=== PATIENT | female | born 1990 | race Caucasian/White ===

== ENCOUNTER 2019-05-28 06:53 | Inpatient (IN) ==
[2019-05-28] MEDS ORDERED: OXYTOCIN 30 UNITS/500 ML BAG IV PRN ×3 (07:16→18:42)
--- NOTE | 2019-05-28 07:25 | History & Physical Report ---
Date of Service May 28, 2019 Assessment & Plan (1) Uterine contractions at greater than 20 weeks of gestation: 29 yo at 40.4 wks with ctxs, cervical change VSS Afebrile, FHR reassuring, GBS negative Plan to admit, monitor Had plan now and likes to ambulate Discussed IVF/ Pitocin and AROM use and she agrees History of Present Illness Chief Complaint: Contractions Primary Care Provider: Florian Kim MD Patient is a 29 yo at 40.4 wks who woke up with ctxs at 0330 am Got closer and more painful No LOF/VB +FM Her has been uncomplicated GBS negative Her cervix was 1/ 30%/ -3, now changed to good 3/ 60%/ -3 She has regular ctxs Being admitted for labor h/o Celiac disease h/o anxiety / depression: on Welbutryn 300 mg daily Allergies Allergy/AdvReac Type Severity Reaction Status Date / Time gluten Allergy Unknown Unknown Verified 03/26/12 21:38 shellfish derived Allergy Unknown Swelling Verified 03/26/12 21:38 Home Medications Home Medications Medication Instructions Recorded Confirmed Type AMPHETAMINE-DEXTROAMPHETAMINE 10MG 10 mg PO BID PRN #0 tab 08/04/13 History (ADDERALL 10MG) Etonogestrel/Ethinyl Estradiol 1 dose VAGRING MONTHLY #0 dose 09/05/15 History (Nuvaring) Fluticasone Propionate (Nasal) 2 spry LANA DAILY PRN #0 09/05/15 History (Flonase Allergy Relief) OMEPRAZOLE (PRILOSEC) 20 mg PO BID PRN #0 cap 09/05/15 History Patient History Medical History Anxiety [employer] History No h/o STD's Review of Systems All systems reviewed & are unremarkable except as noted in HPI & below Physical Exam Constitutional: WD/WN, vitals as above well developed, + acute distress (with contractions only, smilin in between) and + thin Results & Data Vital Signs (Past 12 Hours) Vital Signs Pulse BP 05/28/19 07:17 73 132/73 Monitoring External Monitor 130's categ I Tocodynamometer Contractions q 3-4 min
[2019-05-28 08:04] LABS: Hematocrit (blood only) 35.1 % (37-47); Mean Corpuscular Volume 88.6 fL (80-100); Mean Platelet Volume 10.9 fL (7.4-10.4); Platelet Count 142 K/uL (130-400); RDW Coefficient of Variation 12.8 % (11.5-14.5); RDW Standard Deviation 41.6 fL (36.4-46.3); Red Blood Count 3.96 M/uL (4.2-5.4)
[2019-05-28 08:05] LABS: Mean Corpuscular Hgb Conc 34.2 g/dL (32-36)
--- NOTE | 2019-05-28 08:29 | Anesthesiology Consultation ---
Date of Service May 28, 2019 Assessment & Plan Chart Review Chart Review: Patient NOT seen in Pre Admission Testing and Acceptable Risk for Labor Epidural Consults Requested none ASA ASA2 Proposed Anesthesia Anesthesia Type: Labor Epidural Risk / Benefits Reviewed With: PT / POA / Parent / Guardian, Accepts Plan and Informed Consent Obtained History Height/Weight Height: 5 ft 4 in Weight: 65.317 kg Allergies Allergy/AdvReac Type Severity Reaction Status Date / Time gluten Allergy Unknown Unknown Verified 03/26/12 21:38 shellfish derived Allergy Unknown Swelling Verified 03/26/12 21:38 Medications Home Medications Medication Instructions Recorded Confirmed Last Taken PNV no.[id number] 1 tab PO DAILY 05/28/19 05/28/19 05/27/19 21:00 [ Gummies] bupropion HCl [Wellbutrin SR] 150 mg PO BID 05/28/19 05/28/19 05/28/19 06:30 cholecalciferol (vitamin D3) 1 unit PO DAILY 05/28/19 05/28/19 05/21/19 21:00 [Vitamin D3] 1 ondansetron HCl [Zofran] 4 mg PO BID PRN 05/28/19 05/28/19 05/24/19 21:00 1 ranitidine HCl 150 mg PO BID 05/28/19 05/28/19 05/28/19 06:30 NPO Date Last Intake of Fluids: 05/28/19 Time Last Intake of Fluids: 07:00 Date Last Intake of Solids: 05/28/19 Time Last Intake of Solids: 06:30 Past Medical History Medical History ADHD Anemia Anxiety Exercise / Class Metabolic Activity II 4-5 Yardwork/Stairs/Walk up hill Past Family History Family History Uncle Stroke Past Surgical History Surgical History History of esophagogastroduodenoscopy (EGD) Past Anesthesia History No Hx of Anesthesia Complications and No Family Hx of Anesthesia Complications History of PONV No Hx of PONV and Hx of Motion Sickness Social History Smoking Status: Former smoker Do You Dip or Chew Tobacco: No Hx Alcohol Use: No Alcohol type: wine alcohol intake frequency: other Alcohol Intake Frequency Comment: 1 weekly past 2 months Hx Substance Use: No Physical Exam Vital Signs Last Vital Signs Temp 36.5 C 05/28/19 08:01 Pulse 73 05/28/19 08:01 Resp 20 05/28/19 07:00 BP 132/73 05/28/19 08:01 Constitutional not obese ENMT Mouth: no dentition abnormality Thyromental Distance: < 3.5 Finger Breadths Mallampati Class: II Neck normal visual inspection and trachea midline; neck extension not limited Respiratory normal respiratory effort Auscultation: lungs clear to auscultation bilaterally Cardiovascular Rate/Rhythm: regular rate and regular rhythm Heart Sounds: no murmur Musculoskeletal Spine: lumbar spine normal to inspection; normal cervical ROM Neurologic moves all extremities Motor/Sensory: no sensory deficit Psychiatric Orientation: alert and oriented x 3 Testing Laboratory Results 05/28/19 07:39
[2019-05-28] MEDS: LACTATED RINGER'S 1,000 ML IV PRN ×2 (09:40→11:00)
[2019-05-28] MEDS ORDERED: BUPIVACAINE 0.25% 30 ML VIAL ONE (10:05)
[2019-05-28] MEDS ORDERED: ePHEDrine sulfate 50 MG/ML AMP ONE (10:06)
[2019-05-28] MEDS ORDERED: fentaNYL citrate 100 MCG/2 ML VIAL ONE (10:07)
[2019-05-28] MEDS ORDERED: fentaNYL 2MCG/ML ROPIV 1.25MG/ML 100 ML BAG EPI ONE (10:08)
--- NOTE | 2019-05-28 10:29 | Obstetrical Progress Note ---
Date of Service May 28, 2019 Subjective Patient desires epidural for pain Pain is 07/13 No OF/VB +FM FHR had been categ I Williamson ctxs a 2-3 min, strong VE; / %/ -3, More central Plan epidural for pain Continue to monitor closely Results & Data Vital Signs (Past 12 Hours) Vital Signs Temp Pulse Resp BP 05/28/19 08:01 36.5 C 73 132/73 05/28/19 07:17 73 132/73 05/28/19 07:00 36.5 C 20
[2019-05-28] MEDS ORDERED: NALOXONE HCL 0.4 MG/1 ML VIAL/CARP IV PRN (11:10)
[2019-05-28] MEDS ORDERED: ONDANSETRON INJ 2 MG/ML 2 ML VIAL IV PRN (11:10)
[2019-05-28] MEDS ORDERED: NALOXONE HCL 1 MG in SODIUM CHLORIDE 0.9% 1000ML 1,000 ML IV PRN (11:10)
[2019-05-28] MEDS ORDERED: NALBUPHINE HCL INJ 10 MG/ML AMP IV PRN (11:10)
[2019-05-28] MEDS ORDERED: DiphenhydrAMINE HCL 50 MG/ML VIAL IV PRN (11:10)
[2019-05-28] MEDS ORDERED: ePHEDrine sulfate 50 MG/ML AMP IV PRN (11:10)
--- NOTE | 2019-05-28 14:05 | Obstetrical Progress Note ---
Date of Service May 28, 2019 Subjective Patient is reevaluated She feels much better after epidural VE: Bloody show/ mucus+, cervix 4-5 cm/ 80%/ -2, bulging bag, AROM, bloody? FHR categ I Ctxs spaced out Plan to augment with Pitocin, she agrees Results & Data Vital Signs (Past 12 Hours) Vital Signs Temp Pulse Resp BP Pulse Ox 05/28/19 13:58 87 100 05/28/19 13:53 80 99 05/28/19 13:48 101 H 98 05/28/19 13:47 85 126/73 05/28/19 13:43 90 97 05/28/19 13:38 75 99 05/28/19 13:33 81 97 05/28/19 13:31 67 103/57 L 05/28/19 13:28 81 97 05/28/19 13:23 73 97 05/28/19 13:18 76 98 05/28/19 13:16 80 116/65 05/28/19 13:13 63 96 05/28/19 13:08 70 96 05/28/19 13:03 71 96 05/28/19 13:01 70 111/58 L 05/28/19 12:58 70 98 05/28/19 12:53 68 98 05/28/19 12:48 69 110/58 L 99 05/28/19 12:43 67 97 05/28/19 12:38 72 98 05/28/19 12:33 79 98 05/28/19 12:32 85 105/60 05/28/19 12:28 83 99 05/28/19 12:23 75 98 05/28/19 12:18 75 99/64 L 97 05/28/19 12:13 95 H 95 05/28/19 12:08 88 96 05/28/19 12:05 99 H 93 05/28/19 12:03 89 95 05/28/19 12:01 107 H 126/80 05/28/19 12:00 20 05/28/19 11:58 94 H 97 05/28/19 11:53 100 H 96 05/28/19 11:48 105 H 96 05/28/19 11:47 96 H 123/73 05/28/19 11:43 100 H 96 05/28/19 11:38 105 H 96 05/28/19 11:37 104 H 93 05/28/19 11:33 102 H 96 05/28/19 11:31 107 H 127/80 05/28/19 11:30 20 05/28/19 11:28 101 H 97 05/28/19 11:23 99 H 95 05/28/19 11:22 36.8 C 20 05/28/19 11:20 107 H 94 05/28/19 11:18 92 H 96 05/28/19 11:16 103 H 20 131/84 05/28/19 11:13 101 H 97 05/28/19 11:10 86 121/72 05/28/19 11:09 104 H 94 05/28/19 11:08 104 H 116/75 94 05/28/19 11:06 110 H 126/79 05/28/19 11:04 106 H 120/74 94 05/28/19 11:03 104 H 95 05/28/19 11:02 97 H 133/75 05/28/19 11:01 20 05/28/19 11:00 107 H 127/77 05/28/19 10:58 92 H 122/71 96 05/28/19 10:56 88 124/63 05/28/19 10:54 84 119/74 94 05/28/19 10:53 97 H 94 05/28/19 10:52 93 H 143/66 H 05/28/19 10:50 105 H 148/65 H 05/28/19 10:48 94 H 132/62 96 05/28/19 10:46 106 H 151/67 H 05/28/19 10:44 97 H 130/60 05/28/19 10:43 97 H 89 L 05/28/19 10:41 107 H 93 05/28/19 10:38 108 H 99 05/28/19 10:34 111 H 86 L 05/28/19 10:33 96 H 98 05/28/19 08:01 36.5 C 73 132/73 05/28/19 07:17 73 132/73 05/28/19 07:00 36.5 C 20
--- NOTE | 2019-05-28 16:28 | Obstetrical Progress Note ---
Date of Service May 28, 2019 Subjective Patient is reevaluated She feels ctxs but mild pain VSS Afebrile VE; 6/ 80%/ -1, mild swelling of cervix at left side FHR 130's with decreased variability, had acceleration after scalp stimulation and moderate variability Results & Data Vital Signs (Past 12 Hours) Vital Signs Temp Pulse Resp BP Pulse Ox 05/28/19 16:23 76 98 05/28/19 16:18 79 109/58 L 98 05/28/19 16:13 77 95 05/28/19 16:08 83 99 05/28/19 16:04 90 94 05/28/19 16:03 71 95 05/28/19 16:02 67 104/56 L 05/28/19 15:59 81 94 05/28/19 15:58 71 96 05/28/19 15:53 76 96 05/28/19 15:48 75 95 05/28/19 15:47 74 110/59 L 94 05/28/19 15:43 77 98 05/28/19 15:41 80 94 05/28/19 15:38 81 98 05/28/19 15:37 36.8 C 20 05/28/19 15:33 86 98 05/28/19 15:32 86 128/64 05/28/19 15:28 99 H 96 05/28/19 15:23 77 98 05/28/19 15:18 78 98 05/28/19 15:17 72 115/67 05/28/19 15:13 82 98 05/28/19 15:08 93 H 98 05/28/19 15:03 86 98 05/28/19 15:01 83 120/72 05/28/19 14:58 83 98 05/28/19 14:53 86 98 05/28/19 14:48 107 H 98 05/28/19 14:47 76 121/72 05/28/19 14:43 97 H 97 05/28/19 14:38 79 98 05/28/19 14:33 80 96 05/28/19 14:32 105 H 116/74 05/28/19 14:28 85 97 05/28/19 14:23 94 H 98 05/28/19 14:18 76 97 05/28/19 14:17 75 117/75 05/28/19 14:13 82 99 05/28/19 14:09 83 92 05/28/19 14:08 101 H 99 05/28/19 14:03 84 119/70 100 05/28/19 13:58 87 100 05/28/19 13:53 80 99 05/28/19 13:48 101 H 98 05/28/19 13:47 85 126/73 05/28/19 13:43 90 97 05/28/19 13:38 75 99 05/28/19 13:33 81 97 05/28/19 13:31 67 103/57 L 05/28/19 13:28 81 97 05/28/19 13:23 73 97 05/28/19 13:18 76 98 05/28/19 13:16 80 116/65 05/28/19 13:13 63 96 05/28/19 13:08 70 96 05/28/19 13:03 71 96 05/28/19 13:01 70 111/58 L 05/28/19 12:58 70 98 05/28/19 12:53 68 98 05/28/19 12:48 69 110/58 L 99 05/28/19 12:43 67 97 05/28/19 12:38 72 98 05/28/19 12:33 79 98 05/28/19 12:32 85 105/60 05/28/19 12:28 83 99 05/28/19 12:23 75 98 05/28/19 12:18 75 99/64 L 97 05/28/19 12:13 95 H 95 05/28/19 12:08 88 96 05/28/19 12:05 99 H 93 05/28/19 12:03 89 95 05/28/19 12:01 107 H 126/80 05/28/19 12:00 20 05/28/19 11:58 94 H 97 05/28/19 11:53 100 H 96 05/28/19 11:48 105 H 96 05/28/19 11:47 96 H 123/73 05/28/19 11:43 100 H 96 05/28/19 11:38 105 H 96 05/28/19 11:37 104 H 93 05/28/19 11:33 102 H 96 05/28/19 11:31 107 H 127/80 05/28/19 11:30 20 05/28/19 11:28 101 H 97 05/28/19 11:23 99 H 95 05/28/19 11:22 36.8 C 20 05/28/19 11:20 107 H 94 05/28/19 11:18 92 H 96 05/28/19 11:16 103 H 20 131/84 05/28/19 11:13 101 H 97 05/28/19 11:10 86 121/72 05/28/19 11:09 104 H 94 05/28/19 11:08 104 H 116/75 94 05/28/19 11:06 110 H 126/79 05/28/19 11:04 106 H 120/74 94 05/28/19 11:03 104 H 95 05/28/19 11:02 97 H 133/75 05/28/19 11:01 20 05/28/19 11:00 107 H 127/77 05/28/19 10:58 92 H 122/71 96 05/28/19 10:56 88 124/63 05/28/19 10:54 84 119/74 94 05/28/19 10:53 97 H 94 05/28/19 10:52 93 H 143/66 H 05/28/19 10:50 105 H 148/65 H 05/28/19 10:48 94 H 132/62 96 05/28/19 10:46 106 H 151/67 H 05/28/19 10:44 97 H 130/60 05/28/19 10:43 97 H 89 L 05/28/19 10:41 107 H 93 05/28/19 10:38 108 H 99 05/28/19 10:34 111 H 86 L 05/28/19 10:33 96 H 98 05/28/19 08:01 36.5 C 73 132/73 05/28/19 07:17 73 132/73 05/28/19 07:00 36.5 C 20
[2019-05-28] MEDS: fentaNYL 2MCG/ML ROPIV 1.25MG/ML 100 ML BAG EPI PRN ×2 (17:03→17:32)
--- NOTE | 2019-05-28 17:44 | Obstetrical Progress Note ---
Date of Service May 28, 2019 Subjective Patient felt pressure and wanted to push Started pushing about 15 min ago Good efforts Head at +3 station already FHR reassuring Continue to push and monitor Results & Data Vital Signs (Past 12 Hours) Vital Signs Temp Pulse Resp BP Pulse Ox 05/28/19 17:40 83 83 L 05/28/19 17:38 98 H 98 05/28/19 17:33 100 H 98 05/28/19 17:28 87 100 05/28/19 17:26 102 H 86 L 05/28/19 17:23 87 99 05/28/19 17:18 89 100 05/28/19 17:17 89 76 L 05/28/19 17:16 75 111/61 05/28/19 17:13 82 100 05/28/19 17:09 82 90 05/28/19 17:08 93 H 100 05/28/19 17:03 85 99 05/28/19 16:58 77 98 05/28/19 16:57 87 94 05/28/19 16:53 88 99 05/28/19 16:48 77 97 05/28/19 16:47 70 103/56 L 05/28/19 16:43 78 98 05/28/19 16:38 78 97 05/28/19 16:33 83 98 05/28/19 16:32 73 109/56 L 05/28/19 16:28 74 99 05/28/19 16:23 76 98 05/28/19 16:18 79 109/58 L 98 05/28/19 16:13 77 95 05/28/19 16:08 83 99 05/28/19 16:04 90 94 05/28/19 16:03 71 95 05/28/19 16:02 67 104/56 L 05/28/19 15:59 81 94 05/28/19 15:58 71 96 05/28/19 15:53 76 96 05/28/19 15:48 75 95 05/28/19 15:47 74 110/59 L 94 05/28/19 15:43 77 98 05/28/19 15:41 80 94 05/28/19 15:38 81 98 05/28/19 15:37 36.8 C 20 05/28/19 15:33 86 98 05/28/19 15:32 86 128/64 05/28/19 15:28 99 H 96 05/28/19 15:23 77 98 05/28/19 15:18 78 98 05/28/19 15:17 72 115/67 05/28/19 15:13 82 98 05/28/19 15:08 93 H 98 05/28/19 15:03 86 98 05/28/19 15:01 83 120/72 05/28/19 14:58 83 98 05/28/19 14:53 86 98 05/28/19 14:48 107 H 98 05/28/19 14:47 76 121/72 05/28/19 14:43 97 H 97 05/28/19 14:38 79 98 05/28/19 14:33 80 96 05/28/19 14:32 105 H 116/74 05/28/19 14:28 85 97 05/28/19 14:23 94 H 98 05/28/19 14:18 76 97 05/28/19 14:17 75 117/75 05/28/19 14:13 82 99 05/28/19 14:09 83 92 05/28/19 14:08 101 H 99 05/28/19 14:03 84 119/70 100 05/28/19 13:58 87 100 05/28/19 13:53 80 99 05/28/19 13:48 101 H 98 05/28/19 13:47 85 126/73 05/28/19 13:43 90 97 05/28/19 13:38 75 99 05/28/19 13:33 81 97 05/28/19 13:31 67 103/57 L 05/28/19 13:28 81 97 05/28/19 13:23 73 97 05/28/19 13:18 76 98 05/28/19 13:16 80 116/65 05/28/19 13:13 63 96 05/28/19 13:08 70 96 05/28/19 13:03 71 96 05/28/19 13:01 70 111/58 L 05/28/19 12:58 70 98 05/28/19 12:53 68 98 05/28/19 12:48 69 110/58 L 99 05/28/19 12:43 67 97 05/28/19 12:38 72 98 05/28/19 12:33 79 98 05/28/19 12:32 85 105/60 05/28/19 12:28 83 99 05/28/19 12:23 75 98 05/28/19 12:18 75 99/64 L 97 05/28/19 12:13 95 H 95 05/28/19 12:08 88 96 05/28/19 12:05 99 H 93 05/28/19 12:03 89 95 05/28/19 12:01 107 H 126/80 05/28/19 12:00 20 05/28/19 11:58 94 H 97 05/28/19 11:53 100 H 96 05/28/19 11:48 105 H 96 05/28/19 11:47 96 H 123/73 05/28/19 11:43 100 H 96 05/28/19 11:38 105 H 96 05/28/19 11:37 104 H 93 05/28/19 11:33 102 H 96 05/28/19 11:31 107 H 127/80 05/28/19 11:30 20 05/28/19 11:28 101 H 97 05/28/19 11:23 99 H 95 05/28/19 11:22 36.8 C 20 05/28/19 11:20 107 H 94 05/28/19 11:18 92 H 96 05/28/19 11:16 103 H 20 131/84 05/28/19 11:13 101 H 97 05/28/19 11:10 86 121/72 05/28/19 11:09 104 H 94 05/28/19 11:08 104 H 116/75 94 05/28/19 11:06 110 H 126/79 05/28/19 11:04 106 H 120/74 94 05/28/19 11:03 104 H 95 05/28/19 11:02 97 H 133/75 05/28/19 11:01 20 05/28/19 11:00 107 H 127/77 05/28/19 10:58 92 H 122/71 96 05/28/19 10:56 88 124/63 05/28/19 10:54 84 119/74 94 05/28/19 10:53 97 H 94 05/28/19 10:52 93 H 143/66 H 05/28/19 10:50 105 H 148/65 H 05/28/19 10:48 94 H 132/62 96 05/28/19 10:46 106 H 151/67 H 05/28/19 10:44 97 H 130/60 05/28/19 10:43 97 H 89 L 05/28/19 10:41 107 H 93 05/28/19 10:38 108 H 99 05/28/19 10:34 111 H 86 L 05/28/19 10:33 96 H 98 05/28/19 08:01 36.5 C 73 132/73 05/28/19 07:17 73 132/73 05/28/19 07:00 36.5 C 20
[2019-05-28] MEDS ORDERED: DIPHTHERIA/TETANUS/PERTUSSIS 0.5 ML SYR/VIAL IM ONE (18:42)
[2019-05-28] MEDS ORDERED: OXYCODONE/ACETAMINOPHEN 5mg/325mg TAB PO PRN (18:42)
[2019-05-28] MEDS ORDERED: BENZOCAINE 20% AER SPR 82.5 GM CAN EXT PRN (18:42)
[2019-05-28] MEDS ORDERED: HYDROCORTISONE ACETATE 25 MG SUPP PR PRN (18:42)
[2019-05-28] MEDS ORDERED: MEASLES, MUMPS & RUBELLA VIRUS VIAL SQ ONE (18:42)
[2019-05-28] MEDS ORDERED: SUPERCREAM 0.870% 15 GM JAR EXT PRN (18:42)
[2019-05-28] MEDS ORDERED: BISACODYL 10 MG SUPP PR PRN (18:42)
[2019-05-28] MEDS ORDERED: ACETAMINOPHEN 325 MG TAB PO PRN (18:42)
[2019-05-28] MEDS ORDERED: LACTATED RINGER'S 1,000 ML IV SCH (18:45)
--- NOTE | 2019-05-28 18:56 | Anesthesia Procedure Note ---
Date of Service May 28, 2019 Anesthesia Post Epidural Note Vital Signs Vital Signs: Temp Pulse Resp BP Pulse Ox 37.5 C 103 H 20 140/71 97 05/28/19 18:40 05/28/19 18:54 05/28/19 18:40 05/28/19 18:54 05/28/19 18:18 Pain Intensity Bilateral Back: Pain Intensity: 10 Notes Mental Status: alert / awake / arousable Nausea / Vomiting: adequately controlled Pain: adequately controlled Airway Patency, RR, SpO2: stable & adequate BP & HR: stable & adequate Hydration State: stable & adequate Neuraxial Anesthesia: was administered and sensory block is resolving Anesthetic Complications: no major complications apparent and Pt Satisfied with anesthetic care Epidural: Removed without complications and With tip intact
--- NOTE | 2019-05-28 19:53 | Delivery Summary ---
DATE OF OPERATION: 05/28/2019 TIME: 1814 TIME OF DELIVERY OF PLACENTA: 1830 DETAILS OF DELIVERY: The patient was found to be fully dilated and desired to push. She pushed for about an hour and delivered the head without difficulty. Shoulders were delivered with minimal traction. Baby was handed off to the mother where mouth and nose were suctioned and cord was clamped at 3-minute delay per the patient's request. Baby was vigorously crying and moving. Cord blood was obtained and vagina checked for lacerations. There was a small second-degree perineal laceration at the posterior fourchette. It was confirmed to be second degree by rectal examination and excellent sphincter tone was noted. There was also a first degree left labial laceration and hymenal laceration. The perineal laceration was repaired first. The perineal body muscles around the sphincter were reinforced and the vaginal mucosa in a continuous fashion and skin in a subcuticular fashion with 2/0 Vicryl. Excellent hemostasis was achieved. Rectal examination was repeated and excellent sphincter tone was noted. No sutures were felt. Gloves were changed. First-degree labial laceration and hymenal laceration at 3 o'clock position were repaired with 3-0 Vicryl in a running fashion and the rest of the vagina and perineum were intact and it was hemostatic. The placenta was found to be in the vagina, delivered spontaneous as intact and complete. Uterus was explored and found to be empty. Lower segment was cleared of all clots and debris. Estimated blood loss was 250 ml. Fundus was firm. Mother and baby tolerated the procedure well. Sponge, lap and needle count were correct x3. Baby was a viable male , Apgars 8/9 and weight is 3645 gr. No complications happened and I was present during the whole procedure. I attest to the content of the Intraoperative Record and any orders documented therein. Any exceptions are noted below. GERALDD
[2019-05-28] MEDS: IBUPROFEN 600 MG TAB PO PRN (20:36)
[2019-05-28] MEDS: DOCUSATE SODIUM 100 MG CAP PO SCH (20:36)
[2019-05-29] MEDS: IBUPROFEN 600 MG TAB PO PRN ×4 (03:33→19:31)
--- NOTE | 2019-05-29 07:48 | Obstetrical Progress Note ---
Date of Service May 29, 2019 Assessment & Plan (1) normal course: PPD #1 Pt doing well No complaints Anticipate disch tomorrow Subjective Ambulation: ambulating normally Voiding: no voiding problems Passing Gas:: Yes Diet Tolerance:: regular diet Lochia:: Small Feeding Type:: breast feeding Review of Systems All systems reviewed & are unremarkable except as noted in HPI & below Physical Exam Constitutional WD/WN, vitals as above well developed and well nourished Eyes PERRL, conjunctivae normal, anicteric sclerae Neck trachea midline, no thyromegaly Respiratory normal respiratory effort, lungs clear to auscultation Auscultation: no crackles, no rales and no wheezes Cardiovascular RRR, no murmur, no edema Gastrointestinal (Abdomen) normal bowel sounds, soft, nontender, no hepatosplenomegaly Uterus is below umbilicus Musculoskeletal no cyanosis or clubbing, extremities motor strength 5/5 Skin no rashes, warm and dry Neurologic patellar DTR's 2+ bilat, sensation intact Psychiatric A+Ox3, euthymic affect Genitourinary normal external appearance Results & Data Vital Signs (Past 12 Hours) Vital Signs Temp Pulse Pulse Resp BP BP Pulse Ox 05/29/19 03:26 37.2 C 67 16 126/72 97 05/28/19 23:24 37.4 C 71 18 124/66 96 05/28/19 21:23 37.6 C H 72 18 130/75 97 05/28/19 21:15 20 05/28/19 20:54 93 H 131/81 05/28/19 20:39 98 H 140/79 05/28/19 20:24 93 H 138/74 05/28/19 20:09 93 H 134/69 05/28/19 19:55 18 05/28/19 19:54 94 H 136/68
[2019-05-29 08:11] LABS: Hematocrit (blood only) 33.1 % (37-47); Mean Corpuscular Hgb Conc 33.2 g/dL (32-36); Mean Corpuscular Volume 89.5 fL (80-100); Mean Platelet Volume 11.1 fL (7.4-10.4); Platelet Count 131 K/uL (130-400); RDW Coefficient of Variation 13.1 % (11.5-14.5); RDW Standard Deviation 42.6 fL (36.4-46.3); White Blood Count 11.46 K/uL (4.8-10.8)
[2019-05-29] MEDS: DOCUSATE SODIUM 100 MG CAP PO SCH ×2 (09:27→21:01)
[2019-05-29] MEDS: PRENATAL VITAMIN 1 TAB PO SCH (09:27)
[2019-05-29] MEDS: FERROUS SULFATE 325 MG TAB PO SCH (09:28)
[2019-05-29] MEDS ORDERED: BuPROPion XL 150 MG TABCR PO SCH (10:30)
[2019-05-29] MEDS ORDERED: BISACODYL 5 MG TABEC PO SCH (20:00)
[2019-05-29] MEDS ORDERED: Nursing to Pharmacy Communication ONE (20:17)
[2019-05-29] MEDS: BuPROPion SR 150 MG TABCR PO SCH (21:00)
[2019-05-30] MEDS: IBUPROFEN 600 MG TAB PO PRN (06:31)
[2019-05-30 06:49] LABS: Hematocrit (blood only) 33.7 % (37-47); Hemoglobin 11.2 g/dL (12.0-16.0)
--- NOTE | 2019-05-30 07:46 | Obstetrical Progress Note ---
Date of Service May 30, 2019 Subjective Patient is seen and examined. She feels well, no complaints. Likes to be d/c'd Ambulating without dizziness Voiding without difficulty Tolerating regular diet with out N&V Bleeding is minimal No fever/ chills/ CP/ SOB/ N&V/ Leg pain Breast and bottle feeding without problems Vital Signs Temp Pulse Resp BP Pulse Ox 05/30/19 07:37 36.8 C 85 18 124/78 98 05/30/19 03:40 37 C 70 18 131/79 05/29/19 19:35 37.1 C 70 18 05/29/19 15:50 37.1 C 80 18 127/76 05/29/19 11:25 37.1 C 80 18 127/76 Lab Results 05/28/19 05/29/19 05/30/19 Range/Units 07:39 07:57 06:11 WBC 11.50 H 11.46 H (4.8-10.8) K/uL RBC 3.96 L 3.70 L (4.2-5.4) M/uL Hgb 12.0 11.0 L 11.2 L (12.0-16.0) g/dL Hct 35.1 L 33.1 L 33.7 L (37-47) % MCV 88.6 89.5 (80-100) fL MCH 30.3 29.7 (25-34) pg MCHC 34.2 33.2 (32-36) g/dL RDW Std Deviation 41.6 42.6 (36.4-46.3) fL RDW Coeff of Carlotta 12.8 13.1 (11.5-14.5) % Plt Count 142 131 (130-400) K/uL MPV 10.9 H 11.1 H (7.4-10.4) fL PE: General: Alert, orientedx3, NAD Abd: soft, NT, fundus firm, below Umbilicus Perineum intact, Lochia rubra minimal Ext; NT, no edema AP: 29 yo s/p , ppd# 2 VSS Afebrile doing well Continue routine care All questions were answered Discussed when to call D/C home , f/u in office Results & Data Vital Signs (Past 12 Hours) Vital Signs Temp Pulse Resp BP Pulse Ox 05/30/19 07:37 36.8 C 85 18 124/78 98 05/30/19 03:40 37 C 70 18 131/79
[2019-05-30] MEDS: PRENATAL VITAMIN 1 TAB PO SCH (07:51)
[2019-05-30] MEDS: DOCUSATE SODIUM 100 MG CAP PO SCH (07:51)
[2019-05-30] MEDS: FERROUS SULFATE 325 MG TAB PO SCH (07:51)
[2019-05-30] MEDS: BuPROPion SR 150 MG TABCR PO SCH (07:52)
== END 2019-05-30 11:00 | disposition home or self-care (01) | DRG 807 ==
LOC: OPB 06:53 → 4S1 06:55 → 4S2 21:20
DX: F41.8 Other specified anxiety disorders; K90.0 Celiac disease; Z37.0 Single live birth; Z79.899 Other long term (current) drug therapy; Z91.013 Allergy to seafood; O99.344 Other mental disorders complicating childbirth; O99.62 Diseases of the digestive system complicating childbirth; Z87.891 Personal history of nicotine dependence; Z3A.40 40 weeks gestation of pregnancy; O70.1 Second degree perineal laceration during delivery

== ENCOUNTER 2025-04-02 07:42 | Inpatient (IN) ==
[2025-04-02] MEDS ORDERED: LIDOCAINE 1% LOCAL 20 ML VIAL INFIL PRN (07:58)
[2025-04-02] MEDS ORDERED: ACETAMINOPHEN 325 MG TAB PO PRN (07:58)
[2025-04-02] MEDS ORDERED: CALCIUM CARBONATE 500 MG CHEWABLE TAB PO PRN (07:58)
[2025-04-02] MEDS ORDERED: ROPIVACAINE 0.5% PF 5 MG/ML 20 ML VIAL EPI PRN (08:08)
[2025-04-02] MEDS ORDERED: BUPIVACAINE 0.25% PF 30 ML VIAL EPI PRN (08:08)
[2025-04-02] MEDS ORDERED: LIDOCAINE 2% MPF LOCAL 5 ML VIAL EPI PRN (08:08)
[2025-04-02] MEDS ORDERED: SODIUM CHLORIDE 0.9% PF INJ 10 ML VIAL EPI PRN (08:08)
[2025-04-02] MEDS ORDERED: NALOXONE HCL 0.4 MG/1 ML VIAL/CARP IV PRN (08:08)
[2025-04-02] MEDS ORDERED: NALOXONE HCL 1 MG in SODIUM CHLORIDE 0.9% 1,000 ML IV PRN (08:08)
[2025-04-02] MEDS ORDERED: fentANYL 2 MCG/ML BUPIVacaine 0.125%-NSS 100ML BAG EPI PRN (08:08)
[2025-04-02] MEDS ORDERED: ONDANSETRON INJ 2 MG/ML 2 ML VIAL IV PRN (08:08)
--- NOTE | 2025-04-02 08:08 | Anesthesiology Consultation ---
Date of Service April 02, 2025 Assessment & Plan ASA ASA2 Proposed Anesthesia Anesthesia Type: Labor Epidural Risk / Benefits Reviewed With: PT / POA / Parent / Guardian, Accepts Plan and Informed Consent Obtained History Allergies Allergy/AdvReac Type Severity Reaction Status Date / Time gluten Allergy Unknown Unknown Verified 03/26/12 21:38 shellfish derived Allergy Unknown Swelling Verified 03/26/12 21:38 Medications Home Medications Medication Instructions Recorded Confirmed Last Taken PNV 153-FA 400 mcg-om3 35 mg-dha 1 tab PO DAILY 05/28/19 05/28/19 05/27/19 21:00 25 mg-epa 5 mg-fish oil chew tablet ( Gummies) bupropion HCl 150 mg tablet,12 hr 150 mg PO BID 05/28/19 05/28/19 05/28/19 06:30 sustained-release (Wellbutrin SR) cholecalciferol (vitamin D3) 25 1 unit PO DAILY 05/28/19 05/28/19 05/21/19 21:00 mcg (1,000 unit) tablet (Vitamin 1 D3) ondansetron HCl 4 mg tablet 4 mg PO BID PRN Acid Reflux 05/28/19 05/28/19 05/24/19 21:00 (Zofran) 1 ranitidine HCl 150 mg tablet 150 mg PO BID 05/28/19 05/28/19 05/28/19 06:30 Active Medications Generic Name Dose Route Start Last Admin Trade Name Freq PRN Reason Stop Dose Admin Lactated Ringer's 1,000 mls @ 125 mls/hr 04/02/25 07:58 04/02/25 08:15 Lr IV 04/04/25 07:57 999 mls/hr .Q8H PRN Administration L&D Protocol Protocol Past Medical History Medical History Anemia ADHD Anxiety Exercise / Class Metabolic Activity II 4-5 Yardwork/Stairs/Walk up hill Past Family History Family History Uncle Stroke Past Surgical History Surgical History History of esophagogastroduodenoscopy (EGD) Past Anesthesia History No Hx of Anesthesia Complications and No Family Hx of Anesthesia Complications History of PONV No Hx of PONV and No Hx of Motion Sickness Social History Smoking Status: Former smoker Do You Dip or Chew Tobacco: No Hx Alcohol Use: No Alcohol type: wine alcohol intake frequency: other Hx Substance Use: No Review of Systems denies fever/cough/ colds/ chest pain/ SOB/ CRISTIAN denies CRISTIAN Physical Exam Vital Signs Last Vital Signs Pulse 71 04/02/25 08:37 BP 119/57 L 04/02/25 08:36 Pulse Ox 99 04/02/25 08:37 ENMT Mouth: no TMJ abnormality and no dentition abnormality Thyromental Distance: > or= 3.5 Finger Breadths Mallampati Class: II Neck neck extension not limited Respiratory normal respiratory effort; no respiratory distress Auscultation: lungs clear to auscultation bilaterally Cardiovascular Rate/Rhythm: regular rate and regular rhythm Neurologic moves all extremities Psychiatric Orientation: alert and oriented x 3 Testing Laboratory Results 04/02/25 08:15
[2025-04-02] MEDS: LACTATED RINGER'S 1,000 ML IV PRN (08:15)
[2025-04-02] MEDS: LIDOCAINE 2%/EPINEPHRINE 1:200,000 20 ML PF ONE (08:31)
[2025-04-02] MEDS: BUPIVACAINE 0.25% PF 30 ML VIAL ONE (08:31)
[2025-04-02] MEDS: fentANYL 2 MCG/ML BUPIVacaine 0.125%-NSS 100ML BAG ONE (08:32)
[2025-04-02 08:34] LABS: Hematocrit (blood only) 37.3 % (37.0-47.0); Hemoglobin 12.6 g/dl (12.0-16.0); Mean Corpuscular Hemoglobin 30.7 pg (25.0-34.0); Mean Corpuscular Volume 91.0 fL (80.0-100.0); Platelet Count 138 K/uL (130-400); RDW Standard Deviation 42.2 fL (36.4-46.3); Red Blood Count 4.10 M/uL (4.20-5.40); White Blood Count 12.78 K/ul (4.8-10.8)
[2025-04-02] MEDS: SODIUM CHLORIDE 0.9% PF INJ 10 ML VIAL ONE (08:46)
[2025-04-02] MEDS: diphenhydrAMINE 50 MG/ML VIAL IV PRN (09:36)
--- NOTE | 2025-04-02 10:31 | History & Physical Report ---
Date of Service April 02, 2025 Assessment & Plan (1) Uterine contractions during : Plan: Delivery History of Present Illness Chief Complaint: Active labor Intrauterine 40 weeks 4 days gestation. Primary Care Provider: NO PCP Patient is 35-year-old 2 para 1 good general health she does have a history of thyroid nodule with a partial thyroidectomy in 2023. After surgery she became hypothyroid. She is on thyroid replacement. Been checked several times during her . Was actually checked 2 weeks before she came into the hospital. Her due date for the is 03/29/2025. Her first child was born 2019. 8 pound 1/2 ounce male vaginal delivery at 40 weeks 4 days gestation 13 hours of labor to 1 hour push. Patient started having contractions about 4:15 in the morning. When she arrived at the hospital at about 730 she was in active labor breathing with her contractions. Pelvic exam at that time revealed cervix to be posterior 100% effaced 4 cm dilated with a bulging membranes. Allergies Allergy/AdvReac Type Severity Reaction Status Date / Time gluten Allergy Unknown Unknown Verified 03/26/12 21:38 shellfish derived Allergy Unknown Swelling Verified 03/26/12 21:38 Home Medications Medication Instructions Recorded Confirmed Type levothyroxine 50 mcg tablet 50 mcg PO DAILY 04/02/25 04/02/25 History magnesium glycinate 100 mg (as 400 mg PO DAILY 04/02/25 04/02/25 History glycinate) tablet omeprazole 20 mg capsule,delayed 20 mg PO DAILY PRN Heartburn 04/02/25 04/02/25 History release vit no.133-ferrous 1 tab PO DAILY 04/02/25 04/02/25 History fumarate 28 mg-folic acid 800 mcg tablet () sertraline 50 mg tablet (Zoloft) 50 mg PO DAILY 04/02/25 04/02/25 History Past Med/Surg History Problem List (Updated 04/02/25 @ 10:34 by John Hook MD) Uterine contractions during normal course Uterine contractions at greater than 20 weeks of gestation Pneumonia (Acute) Pharyngitis (Acute) Cough (Acute) Abdominal pain (Acute) Medical History (Updated 04/02/25 @ 10:34 by John Hook MD) Papillary thyroid carcinoma Anemia ADHD Anxiety Surgical History (Updated 04/02/25 @ 08:49 by Nicki Larson RN) H/O thyroidectomy right side 10/13/23 History of esophagogastroduodenoscopy (EGD) Family History Uncle Stroke Social History Smoking Status: Never smoker Do You Dip or Chew Tobacco: No; Hx Alcohol Use: No Hx Substance Use: No Preferred Language: Lao Communication Ability: Effective Cmm Technician Required: No Beliefs That Will Affect Care: None marital status: Current Living Situation: Spouse Other Information That Helps Us Care for You: No Feels Safe at Home: Yes Safety Concerns: Feels Safe At This Time Assistive Devices: None Physical Exam Physical Exam: Patient appeared to be a 37-year-old white female alert oriented x 3 in a fair amount of distress due to abdominal pain. Heart had a regular rhythm S1 and S2 were normal. Lungs clear to auscultation percussion. Trachea was midline there was no cervical adenopathy. There was a horizontal scar on her neck. No CVA tenderness. Abdominal size was consistent with a term size fetus. Pelvic exam revealed the cervix to be 3 to 4 cm dilated. Posterior with bulging membranes. There was no calf tenderness Results & Data Results & Data Vital Signs (Past 12 Hours) Vital Signs Temp Pulse Resp BP Pulse Ox 04/02/25 10:27 100 04/02/25 10:27 85 04/02/25 10:22 100 04/02/25 10:22 80 04/02/25 10:19 68 04/02/25 10:19 116/61 04/02/25 10:17 99 04/02/25 10:17 70 04/02/25 10:12 98 04/02/25 10:12 57 L 04/02/25 10:07 98 04/02/25 10:07 64 04/02/25 10:06 60 04/02/25 10:06 107/59 L 04/02/25 10:02 97 04/02/25 10:02 66 04/02/25 09:57 96 04/02/25 09:57 54 L 04/02/25 09:54 92 04/02/25 09:54 79 04/02/25 09:52 97 04/02/25 09:52 67 04/02/25 09:50 72 04/02/25 09:50 101/56 L 04/02/25 09:47 96 04/02/25 09:47 62 04/02/25 09:42 96 04/02/25 09:42 62 04/02/25 09:41 94 04/02/25 09:41 61 04/02/25 09:37 97 04/02/25 09:37 68 04/02/25 09:35 60 04/02/25 09:35 99/52 L 04/02/25 09:32 92 04/02/25 09:32 64 04/02/25 09:27 94 04/02/25 09:27 65 04/02/25 09:26 92 04/02/25 09:26 66 04/02/25 09:22 98 04/02/25 09:22 63 04/02/25 09:20 94 04/02/25 09:20 66 04/02/25 09:20 102/53 L 04/02/25 09:17 98 04/02/25 09:17 68 04/02/25 09:12 97 04/02/25 09:12 67 04/02/25 09:07 100 04/02/25 09:07 61 04/02/25 09:03 61 04/02/25 09:03 93/54 L 04/02/25 09:02 100 04/02/25 09:02 65 04/02/25 09:00 65 04/02/25 09:00 91/55 L 04/02/25 08:57 100 04/02/25 08:57 66 04/02/25 08:53 73 04/02/25 08:53 109/57 L 04/02/25 08:52 95 04/02/25 08:52 68 04/02/25 08:51 63 04/02/25 08:51 97/53 L 04/02/25 08:51 93 04/02/25 08:51 71 04/02/25 08:49 71 04/02/25 08:49 114/54 L 04/02/25 08:47 92 04/02/25 08:47 72 04/02/25 08:46 36.5 C 61 20 93/54 L 04/02/25 08:43 70 107/54 L 04/02/25 08:42 93 04/02/25 08:42 67 04/02/25 08:42 70 97 06/30/25 08:37 71 99 04/02/25 08:36 63 119/57 L 04/02/25 08:34 83 125/58 L 04/02/25 08:32 72 129/58 L 99 04/02/25 08:30 64 131/61 04/02/25 08:27 64 100 04/02/25 08:24 73 85 L 04/02/25 08:20 78 100 04/02/25 08:19 79 90 04/02/25 08:15 82 99 04/02/25 08:12 61 85 L 04/02/25 08:10 67 99 04/02/25 08:07 77 139/60 Diagnostic Findings Cervix dilated to 3 to 4 cm. Bulging membranes.
[2025-04-02] MEDS ORDERED: OXYTOCIN 30 UNITS/NSS 30 UNITS/500 ML BAG IV PRN (11:22)
[2025-04-02] MEDS ORDERED: HYDROCORTISONE ACETATE 25 MG SUPP PR PRN (11:22)
[2025-04-02] MEDS ORDERED: ACETAMINOPHEN W/CODEINE #3 1 TAB PO PRN (11:22)
--- NOTE | 2025-04-02 11:28 | Delivery Summary ---
Vaginal Delivery Summary Date of Service April 02, 2025 Vaginal Delivery Summary Patient is followed in the office for care and delivery. Urgency has been well dated with a first trimester ultrasound. Her due date 03/29/2025. She is on thyroid replacement status post partial thyroidectomy. Levels have been checked several times including 2 weeks prior to delivery. She was active labor on admission breathing through her contractions. First exam revealed the cervix to be posterior 3 to 4 cm dilated 100% effaced. Patient was given epidural for pain control. monitor was satisfactory however she did have 1 or 2 D cells prior to fully full dilatation. At about 9 cm membranes were ruptured surgically fluid was clear. She she then went on to push out a live male infant via direct occiput anterior position over an intact perineum. She pushed for less than a half an hour. After delivery of the head. And suctioning through the mouth and the nose. There was a tight nuchal cord. Cord had to be clamped and then cut prior to delivery. Cord blood was taken with IV Pitocin running the placenta was removed intact. Inspection revealed a second-degree laceration of the perineum. This was repaired anatomically with 2-0 Vicryl. The vaginal mucosa was approximated out and to beyond the hymenal ring with a running 2-0 Vicryl. A deep suture 2-0 Vicryl was used approximate the bulbocavernosus muscle. Second deep sutures used approximate the perineal body. Running subcuticular suture of 2-0 Vicryl was used approximate the perineal skin edges. Following this vaginal examination revealed no hematoma formation or sponges in the vagina. Quantitative blood loss was 200 mL. Patient tolerated procedure well.
[2025-04-02] MEDS: METHYLERGONOVINE MALEATE 0.2 MG/ML AMP IM ONE (11:47)
[2025-04-02] MEDS: OXYTOCIN 30 UNITS/NSS 30 UNITS/500 ML BAG IV PRN (11:48)
--- NOTE | 2025-04-02 12:08 | Anesthesia Procedure Note ---
Date of Service April 02, 2025 Anesthesia Post Epidural Note Vital Signs Vital Signs: Temp Pulse Resp BP Pulse Ox 36.5 C 61 20 129/64 98 04/02/25 08:46 04/02/25 12:05 04/02/25 08:46 04/02/25 12:05 04/02/25 10:57 Pain Intensity Bilateral Abdomen: Pain Intensity: 0 Notes Mental Status: alert / awake / arousable and participated in evaluation Nausea / Vomiting: adequately controlled Pain: adequately controlled Airway Patency, RR, SpO2: stable & adequate BP & HR: stable & adequate Hydration State: stable & adequate Neuraxial Anesthesia: was administered and sensory block resolved Anesthetic Complications: no major complications apparent and Pt Satisfied with anesthetic care Epidural: Removed without complications and With tip intact
[2025-04-02] MEDS: NALBUPHINE HCL INJ 10 MG/ML AMP IV PRN (12:42)
[2025-04-02] MEDS: LIDOCAINE 2%/EPINEPHRINE 1:200,000 20 ML PF EPI STA (12:56)
[2025-04-02] MEDS: SODIUM CHLORIDE 0.9% PF INJ 10 ML VIAL EPI STA (12:56)
[2025-04-02] MEDS: BUPIVACAINE 0.25% PF 30 ML VIAL EPI STA (12:56)
[2025-04-02] MEDS: DIPHTHER/TETAN/PERTUS Vaccine (Tdap, Adol/Adult) 0.5mL IM ONE (12:56)
[2025-04-02] MEDS: BENZOCAINE 20% SPRY 85 APPLN/85 GM CAN EXT PRN (14:32)
[2025-04-02] MEDS: DOCUSATE SODIUM 100 MG CAP PO SCH (20:46)
[2025-04-02] MEDS: SERTRALINE HCL 50 MG TABLET PO SCH (20:46)
[2025-04-02] MEDS: ACETAMINOPHEN 325 MG TAB PO PRN (21:18)
[2025-04-03] MEDS: IBUPROFEN 600 MG TAB PO PRN (01:08)
[2025-04-03 02:19] VITALS: O2SAT 97
[2025-04-03] MEDS ORDERED: Nursing to Pharmacy Communication SCH (06:15)
[2025-04-03 06:28] LABS: Hematocrit (blood only) 37.3 % (37.0-47.0); Hemoglobin 12.4 g/dl (12.0-16.0); Mean Corpuscular Hemoglobin 30.9 pg (25.0-34.0); Mean Corpuscular Volume 93.0 fL (80.0-100.0); Platelet Count 123 K/uL (130-400); RDW Standard Deviation 43.7 fL (36.4-46.3); Red Blood Count 4.01 M/uL (4.20-5.40); White Blood Count 11.10 K/ul (4.8-10.8)
[2025-04-03] MEDS ORDERED: LEVOTHYROXINE SODIUM 100 MCG TABLET PO SCH (06:30)
[2025-04-03] MEDS: LEVOTHYROXINE SODIUM 50 MCG TABLET PO SCH (06:37)
--- NOTE | 2025-04-03 06:54 | Obstetrical Progress Note ---
Date of Service April 03, 2025 Assessment & Plan Admission and Anticipated Discharge Date Admission Date: April 02, 2025 Subjective abdomen soft and non tender no calf tenderness ambulating well vaginal bleeding scant hgb 12.4 Results & Data Vital Signs (Past 12 Hours) Vital Signs Temp Pulse Resp BP Pulse Ox O2 Del Method 04/03/25 04:10 36.8 C 64 16 107/66 97 Room Air 04/03/25 00:30 36.7 C 66 16 114/70 97 Room Air 04/02/25 20:30 37.3 C 77 18 123/74 96 Room Air
[2025-04-03 07:42] VITALS: RESP 18
[2025-04-03] MEDS: PRENATAL VITAMIN 1 TAB PO SCH (08:15)
[2025-04-03 11:47] VITALS: BP 121/78; PULSE 87; TEMP 98.8
== END 2025-04-03 14:25 | disposition home or self-care (01) | DRG 807 ==
LOC: OPB 07:42 → 4S1 07:46 → 4E2 13:13